=== PATIENT | female | born 1985 | race Caucasian/White ===

== ENCOUNTER 2020-02-09 16:53 | Emergency (ER) | payer OTHER ==
[~2020-02-09] VITALS: Ht 180.3 cm; Wt 124.6 kg
[2020-02-09 16:54] VITALS: BP 129/95
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
[2020-02-09] MEDS ORDERED: NEOSPORIN OINT. PKT 1 PACKET ONE (18:46)
== END 2020-02-09 19:04 | disposition home or self-care (01) ==
LOC: ED 19:01
DX: S83.91XA Sprain of unspecified site of right knee, initial encounter (principal); S13.4XXA Sprain of ligaments of cervical spine, initial encounter; S60.221A Contusion of right hand, initial encounter; S30.0XXA Contusion of lower back and pelvis, initial encounter; V89.2XXA Person injured in unspecified motor-vehicle accident, traffic, initial encounter; Y93.89 Activity, other specified; Y92.89 Other specified places as the place of occurrence of the external cause; Y99.8 Other external cause status
CPT/HCPCS: 71046; 72050; 72110; 99284